=== PATIENT | male | born 1965 | race Caucasian/White ===

== ENCOUNTER 2016-12-31 18:53 | Emergency (ER) | payer MEDICARE, MEDICAID ==
[~2016-12-31] VITALS: Ht 172.7 cm; Wt 95.3 kg
[~2016-12-31 18:53] MED LIST: ABILIFY10 MG PO; ALBUTEROL0.09 MG/A2 IH; AMBIEN5 MG PO; ANDRODERM2.5 MG/24; ASPIRIN325 MG PO; ASPIRIN81 MG PO; AUGMENTIN 875875 MG PO; BENZTROPINE; BENZTROPINE1 MG PO; CLINDAMYCIN150 MG PO; CLONIDINE0.2 MG PO; CLOPIDOGREL75 MG PO; CYMBALTA; CYMBALTA PO; CYMBALTA60 M1 PO; CYMBALTA60 MG PO; DAYPRO600 M1 PO; FOLIC ACID1 MG PO; HYDR25T PO; HYDROCODONE BIT1 T11 PO; IMDUR60 MG PO; KEFLEX500 MG PO; LASIX40 MG PO; LISINOPRIL PO; LISINOPRIL2.5 MG PO; Lopressor25 MG PO; METFORMIN500 MG PO; METHOCARBAMOL750 MG PO; METOPROLOL50 MG PO; NORVASC10 MG PO; OXYCODONE; PEPCID20 MG PO; PERCOCET PO; PLAVIX75 MG PO; PRAVACHOL20 MG PO; PRINIVIL20 MG PO; PROTONIX40 MG PO; ROBAXIN750 MG PO; SEROQUEL100 MG PO; SEROQUEL50 MG PO; SKELAXIN800 MG PO; SYMBICORT1 AE1 INH; SYNTHROID0.125 MG PO; TRAMADOL HCL50 MG PO; TRIMOX500 MG PO; VALIUM; VALIUM10 MG; VICODIN 5/500 505 MG PO; VICODIN 500 MG-1 TAB PO; VITAMIN B1225 MCG; VITAMIN D50000 I1 PO
[2016-12-31 19:08] VITALS: BP 160/91
[2016-12-31 19:30] LABS: BASO % 0.4 % (0.0-1.0); EOS # 0.2 10*3/uL (0.0-0.4); EOS % 2.1 % (1.0-4.0); HEMATOCRIT 44.1 % (42.0-52.0); HEMOGLOBIN 15.4 g/dl (14.0-18.0); LYMPH % 28.6 % (27.0-41.0); MEAN CELL VOLUME 92.5 fl (80.0-94.0); MEAN CORPUSCULAR HGB 32.3 pg (27.0-31.0); MEAN CORPUSCULAR HGB CONC 34.9 g/dl (33.0-37.0); MEAN PLATELET VOLUME 10.6 fl (9.6-12.3); NEUT # 6.1 10*3/uL (2.3-7.9); NEUT % 58.6 % (47.0-73.0); PLATELET COUNT AUTOMATED 292 10*3/uL (130-400); RED BLOOD COUNT 4.77 10*6/uL (4.50-5.90); RED CELL DISTRI WIDTH 13.2 % (0-14.5); WHITE BLOOD COUNT 10.5 10*3/uL (4.8-10.8)
[2016-12-31 19:41] LABS: BILIRUBIN NEGATIVE (NEGATIVE); BLOOD NEGATIVE (NEGATIVE); CLARITY CLEAR (CLEAR); COLOR YELLOW (YELLOW); GLUCOSE NEGATIVE (NEGATIVE); KETONE NEGATIVE (NEGATIVE); LEUKO ESTERASE NEGATIVE (NEGATIVE); NITRITE NEGATIVE (NEGATIVE); PH 5.5 (5.0-9.0); PROTEIN NEGATIVE (NEGATIVE); UROBILINOGEN 0.2 E.U./dl (0.2-1.0)
[2016-12-31 19:46] LABS: ALBUMIN 3.5 gm/dl (3.1-4.5); ALKALINE PHOSPHATASE 92 U/L (45-117); BILIRUBIN, TOTAL 0.2 mg/dl (0.2-1.0); BUN 14 mg/dl (7-24); CARBON DIOXIDE 31 mmol/L (21-32); CHLORIDE 104 mmol/L (98-107); EST GLOM FILT AFRICAN AMERICAN > 60 ml/min; GLUCOSE 124 mg/dL (65-99); POTASSIUM 3.9 mmol/L (3.5-5.1); SGOT/AST 11 IU/L (3-35); SGPT/ALT 23 U/L (12-78); SODIUM 144 mmol/L (136-145); TOTAL PROTEIN 6.9 gm/dL (6.4-8.2)
[2016-12-31 19:54] LABS: RBC 0-2 rbc/hpf (0-2); URINE REFLEX COMMENT NO (NO); WBC 0-2 wbc/hpf (0-5)
== END 2016-12-31 22:17 | disposition home or self-care (01) ==
LOC: ED 18:53
PROVIDERS: Registered Nurse
DX: R10.31 Right lower quadrant pain (principal); F17.200 Nicotine dependence, unspecified, uncomplicated; Z95.5 Presence of coronary angioplasty implant and graft; Z90.49 Acquired absence of other specified parts of digestive tract; Z79.82 Long term (current) use of aspirin; Z79.899 Other long term (current) drug therapy

== ENCOUNTER → 2017-05-02 | Outpatient (CLI) | payer MEDICARE, MEDICAID | END | disposition home or self-care (01) | LOC: RAD 15:44 | DX: M16.0 Bilateral primary osteoarthritis of hip (principal); G89.29 Other chronic pain ==

== ENCOUNTER → 2017-05-19 | Outpatient (CLI) | payer MEDICARE, MEDICAID ==
[2017-05-19 09:00] LABS: BASO # 0.1 10*3/uL (0.0-0.1); BASO % 0.6 % (0.0-1.0); EOS # 0.5 10*3/uL (0.0-0.4); EOS % 4.3 % (1.0-4.0); HEMATOCRIT 43.2 % (42.0-52.0); HEMOGLOBIN 14.7 g/dl (14.0-18.0); LYMPH % 18.6 % (27.0-41.0); MEAN CELL VOLUME 94.9 fl (80.0-94.0); MEAN CORPUSCULAR HGB 32.3 pg (27.0-31.0); MEAN PLATELET VOLUME 10.3 fl (9.6-12.3); MONO # 0.9 10*3/uL (0.1-1.0); MONO % 8.1 % (3.0-9.0); NEUT # 7.2 10*3/uL (2.3-7.9); PLATELET COUNT AUTOMATED 235 10*3/uL (130-400); RED BLOOD COUNT 4.55 10*6/uL (4.50-5.90); RED CELL DISTRI WIDTH 13.6 % (0-14.5); WHITE BLOOD COUNT 10.5 10*3/uL (4.8-10.8)
[2017-05-19 09:26] LABS: ALBUMIN 3.1 gm/dl (3.1-4.5); BUN 14 mg/dl (7-24); CARBON DIOXIDE 31 mmol/L (21-32); CHLORIDE 106 mmol/L (98-107); CHOLESTEROL 116 mg/dL (<200); EST GLOM FILT AFRICAN AMERICAN > 60 ml/min; GLUCOSE 125 mg/dL (65-99); HDL CHOLESTEROL 46 mg/dl (40-60); LDL CHOLESTEROL 51 mg/dL (9-159); POTASSIUM 4.3 mmol/L (3.5-5.1); SGOT/AST 12 IU/L (3-35); SGPT/ALT 28 U/L (12-78); SODIUM 142 mmol/L (136-145); TOTAL PROTEIN 6.5 gm/dL (6.4-8.2); TRIGLYCERIDES 97 mg/dl (<150); VLDL CHOLESTEROL 19 mg/dL (6-40)
[2017-05-19 09:34] LABS: ALKALINE PHOSPHATASE 87 U/L (45-117); BILIRUBIN, TOTAL 0.3 mg/dl (0.2-1.0)
[2017-05-19 13:04] LABS: FOLIC ACID 18.81 ng/mL (>5.38); VITAMIN D, 25-HYDROXY 56.7 ng/mL (30-100)
== END | disposition home or self-care (01) ==
LOC: RAD 08:00 → LAB 08:05
PROVIDERS: Internal Medicine
DX: Z12.5 Encounter for screening for malignant neoplasm of prostate (principal); I25.84 Coronary atherosclerosis due to calcified coronary lesion; E03.9 Hypothyroidism, unspecified; E53.8 Deficiency of other specified B group vitamins; E55.9 Vitamin D deficiency, unspecified; R35.1 Nocturia; E11.9 Type 2 diabetes mellitus without complications; R63.4 Abnormal weight loss; K22.2 Esophageal obstruction; R11.2 Nausea with vomiting, unspecified

== ENCOUNTER 2017-08-27 16:13 | Inpatient (IN) | payer MEDICARE, MEDICAID ==
[~2017-08-27] VITALS: Ht 172.7 cm; Wt 80.5 kg
--- NOTE | ~2017-08-27 | CON ---
[place], [place] REPORT OF CONSULTATION NAME: JUAN BELL [facility] #: [id number] UNIT #: [id number] ROOM: 506 DOCTOR: ALEXANDRIA FREDERICK MD BIRTHDATE: [birth year] DOS: 08/29/2017 REASON FOR CONSULTATION: Chest discomfort. HISTORY OF PRESENT ILLNESS: A 52-year-old gentleman with known history of coronary artery previous stent placement. The patient had a heart catheterization in the past that showed the stents were patent. The patient admitted with left-sided precordial chest discomfort. The patient also has shortness of breath. The patient's pain was about 8/10. No acute EKG changes suggestion of myocardial injury or infarction. The patient says that his symptoms developed a month ago, but got worse for the last 2 days, also has significant shortness of breath. Main problem is shortness of breath more than pain, stated that he has not felt well for about a month with worsening of symptoms for the last 2-3 days. PAST MEDICAL HISTORY: Significant for coronary artery disease, previous stent placement, hypertension, hyperlipidemia, myocardial infarction, suicidal ideation, diabetes mellitus, depression, cannabis abuse, combative behavior and adrenal adenoma. PAST SURGICAL HISTORY: Fracture of the leg, history of renal stent. ALLERGIES: None. HOME MEDICATIONS: Aspirin, carvedilol, clonidine, clopidogrel, hydrochlorothiazide, isosorbide, metformin, pravastatin, and metoprolol. REVIEW OF SYSTEMS: CONSTITUTIONAL: No fever, no chills. HEENT: No visual disturbances or hearing problems. CARDIOVASCULAR: As per HPI. RESPIRATORY: Reports of shortness of breath and cough. GASTROINTESTINAL: No nausea, no vomiting. GENITOURINARY: No dysuria. NEUROLOGIC: No syncope. PHYSICAL EXAMINATION: VITAL SIGNS: Blood pressure is 170/90, repeat is 130/70. HEENT: Unremarkable. NECK: Supple, no JVD, no thyromegaly, no lymphadenopathy. LUNGS: Diminished air entry. No rhonchi, no rales. ABDOMEN: Soft. EXTREMITIES: Intact pulses. NEUROLOGIC: Neurologically stable. LABORATORY DATA: Sodium 138, potassium 3.6, creatinine is normal. Cardiac enzymes have been negative. Electrolytes are normal. LDL is normal. Hemoglobin 15, hematocrit 45.4. EKG sinus with nonspecific ST-T changes. IMPRESSION: The patient with severe shortness of breath and chest heaviness, [place], [place] REPORT OF CONSULTATION NAME: JUAN BELL UNIT #: [id number] ROOM: 506 DOCTOR: ALEXANDRIA FREDERICK MD BIRTHDATE: [birth year] marijuana abuse, diabetes mellitus, hypertension, coronary artery disease, hyperlipidemia. RECOMMENDATIONS: Continue the present medication, schedule a stress test in the morning. Monitor the blood pressure and heart rate, and I will follow up and Dr. Sainz saw the patient for me yesterday. ALEXANDRIA FREDERICK MD CM:CONSTR:REPORT OF CONSULTATION 7 08/29/17802 interface
--- NOTE | ~2017-08-27 | CON ---
[place], [place] REPORT OF CONSULTATION [facility] [id number] UNIT #: [id number] ROOM: 506 DOCTOR: OLIVA RICHMOND MD BIRTHDATE: [birth year] DOS: 08/28/2017 HISTORY OF PRESENT ILLNESS: This is a 52-year-old -[place] man with COPD who continues to smoke about half to one pack of cigarettes per day, coronary artery disease. He has had many stents placed over the years. Also, has a renal artery stent. He also has had myocardial infarction in the past, hypercholesterolemia, diabetes mellitus, depression, combative behavior, cannabis use, alcohol and drug intoxication and also adrenal adenoma. He lives at home with his girlfriend. He apparently had been feeling cold for a long time and felt weak, started coughing. He has thick phlegm that would not come up and last night he was alone at home and was having much difficulty breathing and decided to come to the emergency department. He also complains of the right mid anterior chest pain located on the right side of the sternum at about 4th and 5th intercostal area. It has been there for a year or so. It comes and goes and very localized, however. It does not get worse when he breathes. It does not get worse when he ambulates. No orthopnea or swelling of the lower extremities. HOME MEDICATIONS: Include amlodipine, aspirin, benztropine, Symbicort, clonidine, carvedilol, clopidogrel, famotidine, folic acid, furosemide, hydrochlorothiazide, isosorbide mononitrate 60 daily, lisinopril 30 daily, metformin 500 b.i.d., metoprolol 50 mg b.i.d. and ____. PHYSICAL EXAMINATION: GENERAL: The patient who is alert, oriented. He is wearing oxygen. He is not tachypneic. Complexion is fine. There is no thyromegaly, finger clubbing. VITAL SIGNS: His pulse is regular at 76 beats per minute, blood pressure 157/84. NECK: JVP is normal, no bruit in the neck. HEART: There is no cardiomegaly, no murmurs are present. EXTREMITIES: Excellent pedal pulses and no edema in lower extremities. RESPIRATORY: Bilateral hyperresonance is present and breath sounds are severely diminished with inspiratory and expiratory adventitious sounds. DIAGNOSTIC STUDIES: An ECG showed normal sinus rhythm and poor R wave progression which maybe from an old infarction or clockwise rotation of the heart ____ with COPD. Hemoglobin 15.9 g/dL. Normal WBC, normal renal function, potassium 4.0. Troponin is less than 0.015. Chest x-ray was done, it demonstrated no acute process. IMPRESSION: 1. This patient has severe chronic obstructive pulmonary disease with some exacerbation, probably from a chest infection, acute exacerbation of breathing may have been due to mucus plug. [place], [place] REPORT OF CONSULTATION NAME: JUAN BELL UNIT #: [id number] ROOM: 506 DOCTOR: BASILIO HAMILTON,OLIVA BIRTHDATE: [birth year] 2. Coronary artery disease, is not causing any problems, very localized right-sided chest pain, is likely to be from chest wall such as ____ and may be muscular. 3. Nicotine addiction. RECOMMENDATIONS: The patient needs aggressive COPD management. I discussed with him the need for quitting smoking. I thank you on behalf of Dr. Frederick for this consult. OLIVA RICHMOND MD CM:CONSTR:REPORT OF CONSULTATION 1751 08/29/17 0522 interface ALEXANDRIA FREDERICK MD
--- NOTE | ~2017-08-27 | ST ---
[place], [place] EXERCISE STRESS TEST REPORT [id number] UNIT #: [id number] ROOM: 506 DOCTOR: ALEXANDRIA FREDERICK MD BIRTHDATE: [birth year] DOS: 08/29/2017 Lexiscan portion of the Lexiscan Cardiolite Baseline cardiogram sinus rhythm with nonspecific ST-T changes, 0.4 mg Lexiscan, duration of 10 seconds. With Lexiscan, no new EKG changes. The patient did have shortness of breath. No chest discomfort. Blood pressure and heart rate response was normal. FINAL IMPRESSION: No EKG changes with Lexiscan. No chest pain with Lexiscan. No dysrhythmia with Lexiscan. Blood pressure and heart rate response was normal. Nuclear images will be reported separately. ALEXANDRIA FREDERICK MD CM:STRESS:EXERCISE STRESS TEST REPORT [id number] ALEXANDRIA FREDERICK MD
[2017-08-27 16:19] VITALS: BP 168/90
[2017-08-27 17:00] LABS: BASO # 0.1 10*3/uL (0.0-0.1); BASO % 0.3 % (0.0-1.0); EOS % 0.3 % (1.0-4.0); HEMATOCRIT 51.1 % (42.0-52.0); HEMOGLOBIN 17.4 g/dl (14.0-18.0); LYMPH # 0.6 10*3/uL (1.3-4.4); MEAN CELL VOLUME 94.3 fl (80.0-94.0); MEAN CORPUSCULAR HGB 32.1 pg (27.0-31.0); MEAN CORPUSCULAR HGB CONC 34.1 g/dl (33.0-37.0); MEAN PLATELET VOLUME 10.6 fl (9.6-12.3); MONO # 1.4 10*3/uL (0.1-1.0); MONO % 8.8 % (3.0-9.0); NEUT # 13.8 10*3/uL (2.3-7.9); PLATELET COUNT AUTOMATED 280 10*3/uL (130-400); RED BLOOD COUNT 5.42 10*6/uL (4.50-5.90)
[2017-08-27 17:09] LABS: ACT PARTIAL THROMBO TIME 25.6 SECONDS (20.8-31.5)
[2017-08-27 17:18] LABS: ALBUMIN 4.1 gm/dl (3.1-4.5); ALKALINE PHOSPHATASE 150 U/L (45-117); BUN 17 mg/dl (7-24); CHLORIDE 100 mmol/L (98-107); CREATININE 0.97 mg/dL (0.70-1.30); LIPASE 108 U/L (73-393); SGOT/AST 41 IU/L (3-35); SGPT/ALT 64 U/L (12-78); SODIUM 137 mmol/L (136-145); TOTAL PROTEIN 8.3 gm/dL (6.4-8.2)
[2017-08-27 17:19] LABS: TROPONIN I < 0.015 ng/ml (<0.045)
[2017-08-27 18:00] VITALS: BP 150/78; BP 150/80
--- NOTE | 2017-08-27 18:50 | NUR ---
A 52, admitted to , under the services of MERRILL Bellamy DO with a diagnosis of COPD,PNEUMONITIS. Chief complaint is SHORTNESS OF BREATH. Patient arrived via bed from ER. Monitor applied. Initial assessment completed. Vital signs taken and recorded. MERRILL BELLAMY DO notified of admission to the unit. Orders received. See assessment for past medical history, medications and allergies. Patient and/or family oriented to unit. [facility]. Clothing/patient valuable form completed. CASA CLEMENT
[2017-08-27] MEDS ORDERED: PERCOCET 5-3251 EACH PO (18:59)
[2017-08-27 19:00] VITALS: BP 140/89
[2017-08-27] MEDS ORDERED: COREG25 MG PO (19:02)
--- NOTE | 2017-08-27 19:02 | NUR ---
PATIENT VERIFIED ALL MEDS EXCEPT DOSE FOR COREG. PHARMACY WAS CLOSED.
--- NOTE | 2017-08-27 19:12 | NUR ---
PT VERIFIED HIS [employer] INSPECTOR DR FREDERICK.
--- NOTE | 2017-08-27 19:41 | NUR ---
PT ALREADY IMMUNIZED THIS SEASON WITH BOTH FLU AND PNEUMOVAX.
--- NOTE | 2017-08-27 19:52 | NUR ---
Time: 1904 A 52 year old MALE admitted to 5E under services of MERRILL BELLAMY DO. Pt. arrived via bed from ER. Chief complaint: COPD EXACERBATION. MINDY LUDWIG J
[2017-08-27 19:55] VITALS: BP 140/89
[2017-08-27 20:00] VITALS: BP 165/89
--- NOTE | 2017-08-27 20:30 | NUR ---
NOTIFIED THAT HOME MEDICATION HAVE BEEN VERIFIED. NO ORDERS AT THIS TIME.
[2017-08-28] VITALS: BP 164/100
--- NOTE | 2017-08-28 03:41 | NUR ---
Dr. Donaldson called explained no orders, explained breathing treatments requested and pain medication by patient, and B/P 164/100. Requested and medicated with [facility] at 0127 for complaints of wrist pain, rated 6/10. Requested and medicated with Restoril at 0132 to aid sleep. Restoril ineffective to aid sleep. Remains awake at this time. Will continue to monitor.
[2017-08-28 04:00] VITALS: BP 171/102
[2017-08-28 06:26] LABS: BASO % 0.1 % (0.0-1.0); HEMATOCRIT 45.4 % (42.0-52.0); HEMOGLOBIN 15.9 g/dl (14.0-18.0); LYMPH # 0.6 10*3/uL (1.3-4.4); LYMPH % 7.4 % (27.0-41.0); MEAN CELL VOLUME 92.1 fl (80.0-94.0); MEAN CORPUSCULAR HGB 32.3 pg (27.0-31.0); MEAN PLATELET VOLUME 10.8 fl (9.6-12.3); MONO # 0.4 10*3/uL (0.1-1.0); NEUT # 6.4 10*3/uL (2.3-7.9); PLATELET COUNT AUTOMATED 260 10*3/uL (130-400); RED BLOOD COUNT 4.93 10*6/uL (4.50-5.90); RED CELL DISTRI WIDTH 13.5 % (0-14.5); WHITE BLOOD COUNT 7.4 10*3/uL (4.8-10.8)
[2017-08-28 06:55] LABS: BUN 19 mg/dl (7-24); CHLORIDE 102 mmol/L (98-107); POTASSIUM 3.6 mmol/L (3.5-5.1); SODIUM 138 mmol/L (136-145)
[2017-08-28 06:57] LABS: ACT PARTIAL THROMBO TIME 26.8 SECONDS (20.8-31.5); INTERNATIONAL NORM RATIO 1.1 (2.0-3.5)
[2017-08-28 07:07] LABS: CHOLESTEROL 151 mg/dL (<200); CREATININE 0.83 mg/dL (0.70-1.30); HDL CHOLESTEROL 53 mg/dl (40-60); LDL CHOLESTEROL 78 mg/dL (9-159); THYROID STIM HORMONE (HS) 0.083 uIU/ml (0.358-4.75); TRIGLYCERIDES 98 mg/dl (<150); VLDL CHOLESTEROL 20 mg/dL (6-40)
--- NOTE | 2017-08-28 07:36 | NUR ---
nORCO RECIEVED EARLIER EFFECTIVE TO ALLOW PAIN TO BE TOLERABLE. REQUESTED AND MEDICATED WITH nORCO AT 0730 FOR COMPLAINTS OF BERMUDEZ, RATED A 6/10, WITH A RUNNY NOSE AND CONGESTION ORDER. WILL CONTINUE TO MONITOR.
--- NOTE | 2017-08-28 08:00 | NUR ---
PATIENT IS RESTING COMFORTABLY IN BED. PATIENT HAS HAD A FEW EPISODES OF DYSPNEA AND HAS EXPIRATORY WHEEZES UPON AUSCULTATION. PATIENT WAS HYPERTENSIVE AND STATES THAT HE USUALLY HAS HIGH BP AT HOME. PATIENT DENIES ANY PAIN OR DISCOMFORT AT THIS TIME. PT A&OX3 AND AMBULATES WITHOUT ASSIST. CALL LIGHT WITHING REACH. SEE ASSESSMENT.
--- NOTE | 2017-08-28 08:30 | NUR ---
Carpenter Inspector in to talk to patient. Patient states lives at HOME with HIS GIRLFRIEND. There are 13 steps in the home. Physician: DR LOCK Pharmacy: [facility] health services: NONE Patient's level of ADLs: INDEPENDENT Patient has working utilities: YES DME: NONE Follow-up physician's appointment after d/c: WILL BE MADE PRIOR TO DC Does patient want to access PORTAL?: Discharge plan HOME. JOSEPH YADAV
--- NOTE | 2017-08-28 08:39 | NUR ---
NOTIFIED GIULIANA KIRK REGARDING HYPERTENSION. GIULIANA WAS IN TO SEE PATIENT ON THE FLOOR.
[2017-08-28 08:40] VITALS: BP 170/98
[2017-08-28 08:56] LABS: VITAMIN D, 25-HYDROXY 51.2 ng/mL (30-100)
[2017-08-28 12:00] VITALS: BP 133/75
--- NOTE | 2017-08-28 13:21 | NUR ---
patient given norco per pt request for pain rated a 6/10 in the shoulders and hips described as a dull ache. will continue to monitor and reassess.
--- NOTE | 2017-08-28 13:34 | NUR ---
PATIENT IS RESTING IN THE BEDSIDE CHAIR. PATIENT HAS GRADUAL SORENESS IN SHOULDERS AND HIPS. PATIENT IS ABLE TO AMBULATE WITHOUT ASSIST. PT DENIES SOB RECEIVING 2LPM VIA NC. PATIENT HAS A HX OF HTN. PATIENT DENIES ANY N/V/D. HOB ELEVATED. SAMMY CYR APPLIED. CALL LIGHT WITHIN REACH.
[2017-08-28 16:00] VITALS: BP 157/84
[2017-08-28 20:00] VITALS: BP 170/90
--- NOTE | 2017-08-28 20:00 | NUR ---
LAB RESULTS AND ORDERS REVIEWED. PT RESTING COMFORTABLY IN BED. NO S AND S OF ACUTE DISTRESS NOTED AT THIS TIME.
[2017-08-29] VITALS: BP 155/86
--- NOTE | 2017-08-29 04:00 | NUR ---
PT IN BED RESTING COMFORTABLY. NO S AND S OF ACUTE DISTRESS NOTED AT THIS TIME. CALL LIGHT IN REACH.
--- NOTE | 2017-08-29 06:49 | NUR ---
PT OFF FLOOR FOR STRESS TEST
--- NOTE | 2017-08-29 07:30 | NUR ---
INFORMED CONSENT OBTAINED FOR LEXISCAN NUCLEAR STRESS TEST WITH DR. FREDERICK. RESTING EKG NSR WITH A RESTING HR OF 67 WITH BP OF 162/100. LUNGS CLEAR WITH SPO2 OF 96% ON ROOM AIR. PT COMPLETED A 1:00 LEXISCAN PROTOCOL RECEIVING LEXISCAN 0.4 MG IV OVER 10 SECONDS. HAD NO CHEST PAIN OR ANY EKG CHANGES. DID C/O FEELING OF SHORTNESS OF BREATH THAT RESOLVED IN RECOVERY. HAD A PEAK HR OF 100 WITH BP OF 166/84. LAST RECOVERY HR OF 87 WITH BP OF 172/100. AWAITING SCANNING IN STABLE CONDITION.
[2017-08-29 12:00] VITALS: BP 139/78
[2017-08-29 16:00] VITALS: BP 131/77
[2017-08-29 20:00] VITALS: BP 147/84
--- NOTE | 2017-08-29 20:35 | NUR ---
PATIENT SITTING UP IN BED CONVERSING WITH ROOMMATE. HE HAS NO VOICED COMPLAINTS AT THIS TIME. STATES HE DOES GET SOB WITH EXERTION RACHNA WALKING UP STAIRS. HE IS PLEASANT/COOPERATIVE WITH CARE. CALL LIGHT IS IN REACH. WILL MONITOR.
--- NOTE | 2017-08-29 21:49 | NUR ---
PATIENT MEDICATED WITH PRN NORCO ORDERD FOR C/O BACK PAIN RATED A 6. AND PRN RESTORIL ORDERED FOR C/O INSOMNIA.
[2017-08-30] VITALS: BP 154/88
--- NOTE | 2017-08-30 04:10 | NUR ---
DR WRIGHT NOTIFIED OF PATIENTS [address] [facility] OF [facility]. SHE SAID TO CALL HIS DIRECTOR OF STUDENT FINANCIAL AID TO LET HIM KNOW. DR BOWSER NOTIFIED. NEW ORDERS RECEIVED.
--- NOTE | 2017-08-30 04:37 | NUR ---
MEDICATED WITH PRN NORCO ORDERED FOR C/O BACK PAIN RATED A 7.
[2017-08-30 07:46] LABS: BUN 23 mg/dl (7-24); CHLORIDE 101 mmol/L (98-107); CREATININE 0.86 mg/dL (0.70-1.30); POTASSIUM 3.2 mmol/L (3.5-5.1); SODIUM 139 mmol/L (136-145)
[2017-08-30 08:00] VITALS: BP 171/95
[2017-08-30] MEDS ORDERED: DOXYCYCLINE100 M3 PO (09:15)
[2017-08-30] MEDS ORDERED: METOPROLOL TART50 M1 PO (09:15)
[2017-08-30] MEDS ORDERED: PREDNISONE10 MG PO (09:15)
--- NOTE | 2017-08-30 09:18 | NUR ---
PRN PAIN MED GIVEN FOR 6/10 BACK PAIN.
--- NOTE | 2017-08-30 10:18 | NUR ---
PRN PAIN MED EFFECTIVE, PT REPORTS BACK PAIN 4/10.
--- NOTE | 2017-08-30 11:20 | NUR ---
Patient requested referral to [facility] upon discharge. Received order and faxed clincals to [place] for referral.
--- NOTE | 2017-08-30 12:21 | NUR ---
Discharge instructions reviewed with patient/family. Patient receptive and verbalizes understanding. Follow-up care arranged. Written instructions given to patient/family. [place] [place]
== END 2017-08-30 12:21 | disposition home or self-care (01) | DRG 205 ==
LOC: ED 16:13 → EDHOLD 17:42 → 5E 17:42
PROVIDERS: Emergency Medicine; Internal Medicine; Internal Medicine Cardiovascular Disease; ADMIT Internal Medicine
PROC: 4A02XM4 Measurement of Cardiac Total Activity, External Approach (ICD-10-PCS; principal; 2017-08-29)
PROC: 3E073KZ Introduction of Other Diagnostic Substance into Coronary Artery, Percutaneous Approach (ICD-10-PCS; principal; 2017-08-29)
DX: M94.0 Chondrocostal junction syndrome [Tietze] (principal); J18.9 Pneumonia, unspecified organism; I47.2 Ventricular tachycardia; J44.0 Chronic obstructive pulmonary disease with (acute) lower respiratory infection; J44.1 Chronic obstructive pulmonary disease with (acute) exacerbation; F12.10 Cannabis abuse, uncomplicated; E11.65 Type 2 diabetes mellitus with hyperglycemia; E78.00 Pure hypercholesterolemia, unspecified; K21.9 Gastro-esophageal reflux disease without esophagitis; R07.89 Other chest pain; I25.119 Atherosclerotic heart disease of native coronary artery with unspecified angina pectoris; I10 Essential (primary) hypertension; F17.210 Nicotine dependence, cigarettes, uncomplicated; I25.2 Old myocardial infarction; Z98.61 Coronary angioplasty status; Z90.49 Acquired absence of other specified parts of digestive tract; Z82.49 Family history of ischemic heart disease and other diseases of the circulatory system; Z83.3 Family history of diabetes mellitus; Z80.9 Family history of malignant neoplasm, unspecified; Z79.82 Long term (current) use of aspirin; Z79.84 Long term (current) use of oral hypoglycemic drugs; Z79.899 Other long term (current) drug therapy; Z71.6 Tobacco abuse counseling

== ENCOUNTER → 2018-01-25 | Day surgery (SDC) | payer MEDICARE, MEDICAID ==
[~2018-01-25] VITALS: Ht 172.7 cm; Wt 89.4 kg
[~2018-01-25] MED LIST changes: +COREG25 MG PO; +DOXYCYCLINE100 M3 PO; +METOPROLOL TART50 M1 PO; +NORCO 5-325 TA1 EACH PO; +PERCOCET 5-3251 EACH PO; +PREDNISONE10 MG PO
--- NOTE | ~2018-01-25 | PROC NOTE ---
[place], [place] PROCEDURE NOTE NAME: JUAN BELL [facility] #: [id number] UNIT #: [id number] ROOM: DOCTOR: COSMO KULKARNI MD BIRTHDATE: [birth year] DOS: 01/25/2018 PREOPERATIVE DIAGNOSIS: Posterior neck, left anterior scalp soft tissue masses. POSTOPERATIVE DIAGNOSIS: Posterior neck, left anterior scalp soft tissue masses. PROCEDURE: Excision of posterior neck and left anterior scalp soft tissue mass. SURGEON: Cosmo Kulkarni MD ASSOCIATE QUALITY ENGINEER: SHABNAM. ANESTHESIA: Local (1% plain lidocaine). INDICATIONS: This is a 52-year-old gentleman with a history of 2 soft tissue masses, one on the posterior part of the neck and one on the left anterior scalp, who is here for the above-mentioned procedure. The procedure and its complications were explained to the patient in detail. Complications that were discussed included but were not limited to, bleeding, infection, hematoma/seroma/abscess formation and prolonged pain. He agreed to proceed. DESCRIPTION OF PROCEDURE: After identifying the patient, the patient was brought to the operating suite and laid in the right lateral position. It was decided to remove the posterior neck mass first. The parts were painted and draped in the usual sterile fashion and a time-out procedure was called. An elliptical incision was marked and local anesthesia was infiltrated. Incision was made with the help of a knife and deepened with the help of electrocautery. The mass was excised in its entirety and sent for histopathological diagnosis. Hemostasis was achieved with the help of electrocautery. Thereafter, the skin edges were approximated with the help of 3-0 nylon in mattress fashion. Dressing was placed. The patient was placed in the supine position and the mass was marked on the left anterior scalp. Local anesthesia was infiltrated. An incision was made and the mass was excised in its entirety after it was out from the surrounding fibromuscular tissue. It was sent for histopathological diagnosis. Hemostasis was achieved with the help of electrocautery and by stick ties. Thereafter, after hemostasis confirmed, the edges of the skin were approximated with the help of 3-0 nylon in an interrupted fashion. Additional hemostasis was provided by providing some pressure. After hemostasis was confirmed and there was no hematoma seen, the dressing was placed and the patient was brought back to the recovery room in stable fashion. There were no complications. Dr. Cosmo Kulkarni, the attending surgeon, was present throughout the operating case. [place], [place] PROCEDURE NOTE [id number] #: [id number] ROOM: DOCTOR: COSMO KULKARNI MD BIRTHDATE: [birth year] Cosmo Kulkarni MD CM:PROCNOTE:PROCEDURE NOTE 0940 1004 COSMO KULKARNI MD
[2018-01-25 08:05] VITALS: BP 163/90
[2018-01-25 08:35] VITALS: BP 133/99
[2018-01-25 08:50] VITALS: BP 143/94
[2018-01-25 09:10] VITALS: BP 144/93
[2018-01-25 09:20] VITALS: BP 141/89
== END | disposition home or self-care (01) ==
LOC: SDC 01-24 09:30
DX: D17.0 Benign lipomatous neoplasm of skin and subcutaneous tissue of head, face and neck (principal); L72.0 Epidermal cyst; I25.10 Atherosclerotic heart disease of native coronary artery without angina pectoris; I10 Essential (primary) hypertension; F32.9 Major depressive disorder, single episode, unspecified; F41.9 Anxiety disorder, unspecified; I25.2 Old myocardial infarction; Z95.818 Presence of other cardiac implants and grafts; F17.210 Nicotine dependence, cigarettes, uncomplicated; E78.00 Pure hypercholesterolemia, unspecified; Z90.49 Acquired absence of other specified parts of digestive tract; Z83.3 Family history of diabetes mellitus; Z80.9 Family history of malignant neoplasm, unspecified; Z82.49 Family history of ischemic heart disease and other diseases of the circulatory system; Z79.84 Long term (current) use of oral hypoglycemic drugs; Z79.899 Other long term (current) drug therapy; M19.90 Unspecified osteoarthritis, unspecified site; E11.9 Type 2 diabetes mellitus without complications; J44.9 Chronic obstructive pulmonary disease, unspecified; E03.9 Hypothyroidism, unspecified; I50.9 Heart failure, unspecified; I48.91 Unspecified atrial fibrillation; K21.9 Gastro-esophageal reflux disease without esophagitis

== ENCOUNTER → 2018-02-09 | Outpatient (CLI) | payer MEDICARE, MEDICAID ==
[2018-02-09 11:08] LABS: BILIRUBIN NEGATIVE (NEGATIVE); BLOOD NEGATIVE (NEGATIVE); CLARITY CLEAR (CLEAR); COLOR YELLOW (YELLOW); GLUCOSE NEGATIVE (NEGATIVE); KETONE TRACE (NEGATIVE); LEUKO ESTERASE NEGATIVE (NEGATIVE); NITRITE NEGATIVE (NEGATIVE); UROBILINOGEN 0.2 E.U./dl (0.2-1.0)
[2018-02-09 11:15] LABS: BASO # 0.1 10*3/uL (0.0-0.1); BASO % 0.5 % (0.0-1.0); EOS # 0.4 10*3/uL (0.0-0.4); EOS % 3.3 % (1.0-4.0); HEMATOCRIT 48.3 % (42.0-52.0); HEMOGLOBIN 16.1 g/dl (14.0-18.0); LYMPH # 2.9 10*3/uL (1.3-4.4); LYMPH % 22.4 % (27.0-41.0); MEAN CELL VOLUME 92.7 fl (80.0-94.0); MEAN CORPUSCULAR HGB 30.9 pg (27.0-31.0); MEAN CORPUSCULAR HGB CONC 33.3 g/dl (33.0-37.0); MEAN PLATELET VOLUME 10.7 fl (9.6-12.3); MONO # 1.2 10*3/uL (0.1-1.0); MONO % 9.5 % (3.0-9.0); NEUT # 8.2 10*3/uL (2.3-7.9); NEUT % 64.1 % (47.0-73.0); PLATELET COUNT AUTOMATED 274 10*3/uL (130-400); RED BLOOD COUNT 5.21 10*6/uL (4.50-5.90); RED CELL DISTRI WIDTH 14.1 % (0-14.5); WHITE BLOOD COUNT 12.8 10*3/uL (4.8-10.8)
[2018-02-09 11:27] LABS: EPITHELIAL CELLS 0-2; WBC 0-2 wbc/hpf (0-5)
[2018-02-09 11:29] LABS: BUN 14 mg/dl (7-24); CHLORIDE 103 mmol/L (98-107); CREATININE 0.96 mg/dL (0.70-1.30); SODIUM 137 mmol/L (136-145)
== END | disposition home or self-care (01) ==
LOC: LAB 08:43
PROVIDERS: Surgery
DX: Z01.818 Encounter for other preprocedural examination (principal); J43.9 Emphysema, unspecified; I48.0 Paroxysmal atrial fibrillation; R94.31 Abnormal electrocardiogram [ECG] [EKG]; I25.10 Atherosclerotic heart disease of native coronary artery without angina pectoris; I25.84 Coronary atherosclerosis due to calcified coronary lesion; E11.9 Type 2 diabetes mellitus without complications; E03.9 Hypothyroidism, unspecified; I10 Essential (primary) hypertension; R13.14 Dysphagia, pharyngoesophageal phase; K42.9 Umbilical hernia without obstruction or gangrene; F17.200 Nicotine dependence, unspecified, uncomplicated

== ENCOUNTER → 2018-02-15 | Day surgery (SDC) | payer MEDICARE, MEDICAID ==
[~2018-02-15] VITALS: Ht 172.7 cm; Wt 86.2 kg
[2018-02-15] VITALS (7 sets, daily range): BP systolic 106–138; BP diastolic 72–89
--- NOTE | ~2018-02-15 | O ---
[place], [place] OPERATIVE NOTE NAME: JUAN BELL [facility] #: [id number] UNIT #: [id number] ROOM: DOCTOR: COSMO KULKARNI MD BIRTHDATE: [birth year] DOS: 02/15/2018 PREOPERATIVE DIAGNOSIS: Symptomatic umbilical hernia. POSTOPERATIVE DIAGNOSIS: Symptomatic umbilical hernia. PROCEDURE: Umbilical hernia repair (primary). SURGEON: Cosmo Kulkarni MD DREDGE MASTER: SHABNAM. ANESTHESIA: MAC with local. INDICATIONS: This is a 52-year-old gentleman with a prior history of laparoscopic cholecystectomy, who is here with an umbilical hernia. The procedure and its complications were explained to the patient in detail preoperatively. Complications that were discussed included but were not limited to bleeding, infection, hematoma/seroma/abscess formation, prolonged postoperative pain, damage to underlying vital structures, inadvertent injury to underlying vital structures and recurrence. He agreed to proceed. DESCRIPTION OF PROCEDURE: After identifying the patient, the patient was brought to the operating suite and laid in the supine position. After IV sedation was administered by the anesthesia team, the parts were painted and draped in the usual sterile fashion and a timeout procedure was called. A curvilinear incision was marked with the help of a marking pen in the inferior part of the umbilicus. After 1% plain lidocaine was injected for local anesthesia, the incision was made with the help of electrocautery and deepened in layers. The hernial sac was from the surrounding skin and subcutaneous tissue in all directions. Thereafter, the hernial sac itself was opened and was found to contain omentum. Adhesions between the omentum and the sac were taken down with the help of electrocautery and partial omentectomy was done in order to better identify the defect and perform the repair. The sac was then excised with the help of electrocautery and sent for histopathological diagnosis as well. After the edges of the fascial defect were cleared of all the connective tissue. The size of the defect was measured and it was found to be less than 1 cm. Therefore, a primary repair was elected to be performed. This was done with the help of 0 PDS in an interrupted fashion. Thereafter, the subcutaneous tissue was irrigated and approximated in 2 layers with the help of 3-0 Vicryl. The edges of the skin were approximated with help of 4-0 Vicryl in a subcuticular running fashion. A dressing was placed. The patient tolerated the procedure well. There were no complications. Dr. Cosmo Kulkarni, the attending surgeon, was present throughout the operating case. [place], [place] OPERATIVE NOTE NAME: ARABELLAJUAN Ibis UNIT #: [id number] ROOM: DOCTOR: COSMO KULKARNI MD BIRTHDATE: [birth year] Cosmo Kulkarni MD CM:OPRECORD:OPERATIVE NOTE 0 9 COSMO KULKARNI MD 02/15/18939 interface
== END | disposition home or self-care (01) ==
LOC: SDC 02-09 08:45
DX: K42.9 Umbilical hernia without obstruction or gangrene (principal); I25.2 Old myocardial infarction; I25.10 Atherosclerotic heart disease of native coronary artery without angina pectoris; J44.9 Chronic obstructive pulmonary disease, unspecified; K21.9 Gastro-esophageal reflux disease without esophagitis; E11.9 Type 2 diabetes mellitus without complications; M19.90 Unspecified osteoarthritis, unspecified site; E03.9 Hypothyroidism, unspecified; F32.9 Major depressive disorder, single episode, unspecified; I50.9 Heart failure, unspecified; I48.91 Unspecified atrial fibrillation; I11.0 Hypertensive heart disease with heart failure; Z90.49 Acquired absence of other specified parts of digestive tract; Z83.3 Family history of diabetes mellitus; Z82.49 Family history of ischemic heart disease and other diseases of the circulatory system; F17.210 Nicotine dependence, cigarettes, uncomplicated; Z98.890 Other specified postprocedural states; Z79.899 Other long term (current) drug therapy

== ENCOUNTER 2018-02-23 18:43 | Emergency (ER) | payer MEDICARE, MEDICAID ==
[~2018-02-23] VITALS: Wt 89.4 kg
[2018-02-23 18:47] VITALS: BP 163/105
[2018-02-23 19:55] LABS: HEMOGLOBIN 16.3 g/dl (14.0-18.0); MEAN CELL VOLUME 90.6 fl (80.0-94.0); MEAN CORPUSCULAR HGB 31.4 pg (27.0-31.0); MEAN CORPUSCULAR HGB CONC 34.7 g/dl (33.0-37.0); MEAN PLATELET VOLUME 10.3 fl (9.6-12.3); PLATELET COUNT AUTOMATED 223 10*3/uL (130-400); RED BLOOD COUNT 5.19 10*6/uL (4.50-5.90); RED CELL DISTRI WIDTH 13.9 % (0-14.5); WHITE BLOOD COUNT 12.4 10*3/uL (4.8-10.8)
[2018-02-23 20:05] LABS: ACT PARTIAL THROMBO TIME 24.8 SECONDS (20.8-31.5)
[2018-02-23 20:11] LABS: ALBUMIN 3.7 gm/dl (3.1-4.5); ALKALINE PHOSPHATASE 88 U/L (45-117); BUN 21 mg/dl (7-24); CHLORIDE 107 mmol/L (98-107); CREATININE 1.14 mg/dL (0.70-1.30); POTASSIUM 4.2 mmol/L (3.5-5.1); SGOT/AST 19 IU/L (3-35); SGPT/ALT 27 U/L (12-78); SODIUM 141 mmol/L (136-145); TOTAL PROTEIN 6.7 gm/dL (6.4-8.2)
[2018-02-23 20:15] LABS: TROPONIN I < 0.015 ng/ml (<0.045)
[2018-02-23 20:20] LABS: PLATELET SUFFICIENCY NORMAL (NORMAL); TOTAL CELLS COUNTED 100 #CELLS
== END 2018-02-23 22:35 | disposition left against medical advice (07) ==
LOC: ED 18:43
PROVIDERS: Nurse Practitioner Family
DX: K91.841 Postprocedural hemorrhage of a digestive system organ or structure following other procedure (principal); R10.33 Periumbilical pain; F17.200 Nicotine dependence, unspecified, uncomplicated; E11.65 Type 2 diabetes mellitus with hyperglycemia; E78.00 Pure hypercholesterolemia, unspecified; F12.10 Cannabis abuse, uncomplicated; Z98.890 Other specified postprocedural states; Z90.49 Acquired absence of other specified parts of digestive tract; Z79.899 Other long term (current) drug therapy; Z79.82 Long term (current) use of aspirin

== ENCOUNTER → 2018-05-02 | Outpatient (CLI) | payer MEDICARE, MEDICAID ==
[2018-05-02 13:52] LABS: BASO % 0.4 % (0.0-1.0); EOS # 0.2 10*3/uL (0.0-0.4); HEMATOCRIT 47.3 % (42.0-52.0); HEMOGLOBIN 16.1 g/dl (14.0-18.0); LYMPH # 2.4 10*3/uL (1.3-4.4); LYMPH % 22.1 % (27.0-41.0); MEAN CELL VOLUME 92.9 fl (80.0-94.0); MEAN CORPUSCULAR HGB 31.6 pg (27.0-31.0); MEAN PLATELET VOLUME 10.7 fl (9.6-12.3); NEUT # 7.3 10*3/uL (2.3-7.9); NEUT % 66.2 % (47.0-73.0); PLATELET COUNT AUTOMATED 244 10*3/uL (130-400); RED BLOOD COUNT 5.09 10*6/uL (4.50-5.90); RED CELL DISTRI WIDTH 13.6 % (0-14.5)
[2018-05-02 14:15] LABS: ALBUMIN 3.9 gm/dl (3.1-4.5); ALKALINE PHOSPHATASE 78 U/L (45-117); BUN 18 mg/dl (7-24); CHLORIDE 105 mmol/L (98-107); CREATININE 0.87 mg/dL (0.70-1.30); POTASSIUM 3.6 mmol/L (3.5-5.1); SGOT/AST 10 IU/L (3-35); SGPT/ALT 20 U/L (12-78); SODIUM 141 mmol/L (136-145); TOTAL PROTEIN 6.9 gm/dL (6.4-8.2)
== END | disposition home or self-care (01) ==
LOC: LAB 12:24
PROVIDERS: Internal Medicine
DX: R10.31 Right lower quadrant pain (principal)

== ENCOUNTER 2018-08-28 23:12 | Inpatient (IN) | payer MEDICARE, MEDICAID ==
[~2018-08-28] VITALS: Ht 172.7 cm; Wt 90.0 kg
--- NOTE | ~2018-08-28 | EKG ---
[place], [place] ELECTROCARDIOGRAM REPORT NAME: JUAN BELL UNIT #: [id number] ROOM: 425 DOCTOR: ALPA DRAFT REPORT BIRTHDATE: [birth year] [facility] Test Date: 2018-08-28 Test Time: 23:32:16 Pat Name: JUAN BELL Department: 4E Room: 425 Gender: M Tapeman: Marcus Dave : 1965 Requested By: JOE RAMOS Order Number: [id number] Reading MD: David Goff MD Measurements Intervals [place] Rate: 117 P: 64 AR: 160 QRS: -1 QRSD: 85 T: 112 QT: 346 QTc: 483 Interpretive Statements Sinus tachycardia LAE, consider biatrial enlargement Inferior infarct, old Abnormal lateral Q waves Anterior infarct, old Electronically Signed On 08-30-2018 6:31:50 PST by David Goff MD CM:EKGRPT:ELECTROCARDIOGRAM REPORT 2332 0631 JOE JUAREZ DRAFT REPORT JOE RAMOS DO
[2018-08-28 23:12] VITALS: BP 149/103
[~2018-08-28 23:12] MED LIST changes: +ASPIRIN CHEWABL81 MG PO; -ASPIRIN325 MG PO
[2018-08-28] MEDS ORDERED: SYMB160 INH (23:23)
[2018-08-28] MEDS ORDERED: BUSPIRONE HCL10 MG PO (23:25)
[2018-08-28 23:32] VITALS: BP 119/96
[2018-08-28 23:46] LABS: HEMATOCRIT 55.3 % (42.0-52.0); HEMOGLOBIN 19.2 g/dl (14.0-18.0); MEAN CELL VOLUME 91.9 fl (80.0-94.0); MEAN CORPUSCULAR HGB 31.9 pg (27.0-31.0); MEAN CORPUSCULAR HGB CONC 34.7 g/dl (33.0-37.0); MEAN PLATELET VOLUME 10.2 fl (9.6-12.3); PLATELET COUNT AUTOMATED 218 10*3/uL (130-400); RED BLOOD COUNT 6.02 10*6/uL (4.50-5.90); RED CELL DISTRI WIDTH 13.4 % (0-14.5); WHITE BLOOD COUNT 11.6 10*3/uL (4.8-10.8)
[2018-08-29] VITALS (8 sets, daily range): BP systolic 138–158; BP diastolic 82–97
[2018-08-29 00:05] LABS: ALBUMIN 3.5 gm/dl (3.1-4.5); ALKALINE PHOSPHATASE 107 U/L (45-117); BUN 14 mg/dl (7-24); CHLORIDE 98 mmol/L (98-107); CREATININE 1.23 mg/dL (0.70-1.30); POTASSIUM 3.3 mmol/L (3.5-5.1); SGOT/AST 25 IU/L (3-35); SGPT/ALT 40 U/L (12-78); SODIUM 134 mmol/L (136-145); TOTAL PROTEIN 7.3 gm/dL (6.4-8.2)
[2018-08-29 00:07] LABS: TROPONIN I < 0.015 ng/ml (<0.045)
[2018-08-29 00:14] LABS: ATYPICAL LYMPHS 3 % (0-0); PLATELET SUFFICIENCY NORMAL (NORMAL); TOTAL CELLS COUNTED 100 #CELLS
[2018-08-29 06:39] LABS: HEMATOCRIT 50.8 % (42.0-52.0); HEMOGLOBIN 17.6 g/dl (14.0-18.0); MEAN CORPUSCULAR HGB 31.9 pg (27.0-31.0); MEAN CORPUSCULAR HGB CONC 34.6 g/dl (33.0-37.0); MEAN PLATELET VOLUME 10.5 fl (9.6-12.3); PLATELET COUNT AUTOMATED 213 10*3/uL (130-400); RED BLOOD COUNT 5.52 10*6/uL (4.50-5.90); RED CELL DISTRI WIDTH 13.4 % (0-14.5); WHITE BLOOD COUNT 8.7 10*3/uL (4.8-10.8)
[2018-08-29 06:47] LABS: ALBUMIN 3.1 gm/dl (3.1-4.5); BUN 13 mg/dl (7-24); CHLORIDE 106 mmol/L (98-107); CHOLESTEROL 126 mg/dL (<200); CREATININE 0.95 mg/dL (0.70-1.30); POTASSIUM 3.8 mmol/L (3.5-5.1); SGOT/AST 19 IU/L (3-35); SGPT/ALT 35 U/L (12-78); SODIUM 137 mmol/L (136-145); TOTAL PROTEIN 6.7 gm/dL (6.4-8.2); TRIGLYCERIDES 66 mg/dl (<150); TROPONIN I 0.022 ng/ml (<0.045); VLDL CHOLESTEROL 13 mg/dL (6-40)
[2018-08-29 06:48] LABS: ALKALINE PHOSPHATASE 95 U/L (45-117); HDL CHOLESTEROL 43 mg/dl (40-60); LDL CHOLESTEROL 70 mg/dL (9-159)
[2018-08-29 06:52] LABS: FREE T4 1.29 ng/dl (0.76-1.46); THYROID STIM HORMONE (HS) 0.247 uIU/ml (0.358-4.75)
[2018-08-29 07:06] LABS: ACT PARTIAL THROMBO TIME 27.1 SECONDS (20.8-31.5); INTERNATIONAL NORM RATIO 1.1 (2.0-3.5)
[2018-08-29 07:29] LABS: PLATELET SUFFICIENCY NORMAL (NORMAL); TOTAL CELLS COUNTED 100 #CELLS
[2018-08-29 07:37] LABS: VITAMIN D, 25-HYDROXY 34.1 ng/mL (30-100)
[2018-08-29] MEDS ORDERED: LISINOPRIL40 MG PO (09:22)
[2018-08-29] MEDS ORDERED: CYCLOBENZAPRINE10 MG PO (09:22)
[2018-08-30] VITALS: BP 154/90
[2018-08-30 06:24] LABS: BASO % 0.1 % (0.0-1.0); HEMATOCRIT 48.8 % (42.0-52.0); HEMOGLOBIN 16.3 g/dl (14.0-18.0); LYMPH # 1.1 10*3/uL (1.3-4.4); LYMPH % 7.7 % (27.0-41.0); MEAN CORPUSCULAR HGB 31.4 pg (27.0-31.0); MEAN CORPUSCULAR HGB CONC 33.4 g/dl (33.0-37.0); MEAN PLATELET VOLUME 10.6 fl (9.6-12.3); MONO # 0.7 10*3/uL (0.1-1.0); MONO % 4.5 % (3.0-9.0); NEUT # 12.8 10*3/uL (2.3-7.9); NEUT % 87.4 % (47.0-73.0); PLATELET COUNT AUTOMATED 215 10*3/uL (130-400); RED BLOOD COUNT 5.19 10*6/uL (4.50-5.90); RED CELL DISTRI WIDTH 13.8 % (0-14.5); WHITE BLOOD COUNT 14.7 10*3/uL (4.8-10.8)
[2018-08-30 06:55] LABS: BUN 17 mg/dl (7-24); CHLORIDE 102 mmol/L (98-107); CREATININE 0.84 mg/dL (0.70-1.30); POTASSIUM 4.2 mmol/L (3.5-5.1); SODIUM 138 mmol/L (136-145)
[2018-08-30 08:00] VITALS: BP 157/102
[2018-08-30 12:00] VITALS: BP 147/98
[2018-08-30 16:00] VITALS: BP 133/95
[2018-08-30 20:00] VITALS: BP 159/91
[2018-08-31] VITALS: BP 144/75
[2018-08-31 06:35] LABS: HEMOGLOBIN 16.6 g/dl (14.0-18.0); MEAN CORPUSCULAR HGB 31.5 pg (27.0-31.0); MEAN CORPUSCULAR HGB CONC 33.9 g/dl (33.0-37.0); MEAN PLATELET VOLUME 10.3 fl (9.6-12.3); PLATELET COUNT AUTOMATED 216 10*3/uL (130-400); RED BLOOD COUNT 5.27 10*6/uL (4.50-5.90); RED CELL DISTRI WIDTH 13.7 % (0-14.5); WHITE BLOOD COUNT 18.6 10*3/uL (4.8-10.8)
[2018-08-31 06:47] LABS: BUN 19 mg/dl (7-24); CHLORIDE 100 mmol/L (98-107); CREATININE 0.84 mg/dL (0.70-1.30); POTASSIUM 3.7 mmol/L (3.5-5.1); SODIUM 138 mmol/L (136-145)
[2018-08-31 06:58] LABS: PLATELET SUFFICIENCY NORMAL (NORMAL); TOTAL CELLS COUNTED 100 #CELLS
[2018-08-31 08:00] VITALS: BP 171/107
[2018-08-31 12:00] VITALS: BP 152/95
[2018-08-31] MEDS ORDERED: PREDNISONE10 MG PO (12:53)
[2018-08-31] MEDS ORDERED: ZITHROMAX250 MG PO (12:53)
== END 2018-08-31 13:57 | disposition home or self-care (01) | DRG 871 ==
LOC: ED 23:12 → 4E 08-29 01:48 → EDHOLD 08-29 01:48 → 4E 08-29 02:09
PROVIDERS: Internal Medicine; Podiatrist Primary Podiatric Medicine; Student in an Organized Health Care Education/Training Program
DX: A41.9 Sepsis, unspecified organism (principal); J18.9 Pneumonia, unspecified organism; J44.1 Chronic obstructive pulmonary disease with (acute) exacerbation; E87.2 Acidosis; E87.1 Hypo-osmolality and hyponatremia; J44.0 Chronic obstructive pulmonary disease with (acute) lower respiratory infection; R65.20 Severe sepsis without septic shock; L23.7 Allergic contact dermatitis due to plants, except food; E87.6 Hypokalemia; D75.1 Secondary polycythemia; I10 Essential (primary) hypertension; I25.10 Atherosclerotic heart disease of native coronary artery without angina pectoris; I48.0 Paroxysmal atrial fibrillation; E03.9 Hypothyroidism, unspecified; K21.9 Gastro-esophageal reflux disease without esophagitis; E11.8 Type 2 diabetes mellitus with unspecified complications; F39 Unspecified mood [affective] disorder; R09.02 Hypoxemia; F32.9 Major depressive disorder, single episode, unspecified; E78.00 Pure hypercholesterolemia, unspecified; E66.9 Obesity, unspecified; F17.210 Nicotine dependence, cigarettes, uncomplicated; Z71.6 Tobacco abuse counseling; Z87.01 Personal history of pneumonia (recurrent); Z95.5 Presence of coronary angioplasty implant and graft; I25.2 Old myocardial infarction; Z87.81 Personal history of (healed) traumatic fracture; Z90.49 Acquired absence of other specified parts of digestive tract; Z82.49 Family history of ischemic heart disease and other diseases of the circulatory system; Z83.3 Family history of diabetes mellitus; Z80.9 Family history of malignant neoplasm, unspecified; Z79.82 Long term (current) use of aspirin; Z79.899 Other long term (current) drug therapy; Z68.30 Body mass index [BMI] 30.0-30.9, adult

== ENCOUNTER 2019-12-07 16:37 | Emergency (ER) | payer MEDICARE, MEDICAID ==
[~2019-12-07] VITALS: Ht 172.7 cm; Wt 86.2 kg
[~2019-12-07 16:37] MED LIST changes: +BUSPIRONE HCL10 MG PO; +CYCLOBENZAPRINE10 MG PO; +LISINOPRIL40 MG PO; +SYMB160 INH; +ZITHROMAX250 MG PO
[2019-12-07 18:08] LABS: HEMATOCRIT 51.2 % (42.0-52.0); MEAN CELL VOLUME 90.9 fl (80.0-94.0); MEAN CORPUSCULAR HGB CONC 35.2 g/dl (33.0-37.0); MEAN PLATELET VOLUME 10.9 fl (9.6-12.3); PLATELET COUNT AUTOMATED 280 10*3/uL (130-400); RED BLOOD COUNT 5.63 10*6/uL (4.50-5.90); RED CELL DISTRI WIDTH 13.3 % (0-14.5); WHITE BLOOD COUNT 20.4 10*3/uL (4.8-10.8)
[2019-12-07 18:22] LABS: ACT PARTIAL THROMBO TIME 30.5 SECONDS (20.0-32.1)
[2019-12-07 18:24] LABS: ALBUMIN 3.7 gm/dl (3.1-4.5); ALKALINE PHOSPHATASE 98 U/L (45-117); BUN 14 mg/dl (7-24); CHLORIDE 102 mmol/L (98-107); CREATININE 1.03 mg/dL (0.70-1.30); POTASSIUM 3.4 mmol/L (3.5-5.1); SGOT/AST 22 IU/L (3-35); SGPT/ALT 21 U/L (12-78); SODIUM 136 mmol/L (136-145); TOTAL PROTEIN 8.3 gm/dL (6.4-8.2); URIC ACID 6.7 mg/dL (3.5-7.2)
[2019-12-07 18:25] LABS: TROPONIN I < 0.015 ng/ml (<0.045)
[2019-12-07 18:33] VITALS: BP 180/100
[2019-12-07 18:38] LABS: BASOPHILS 1 % (0-1); TOTAL CELLS COUNTED 100 #CELLS
[2019-12-07 18:39] LABS: PLATELET SUFFICIENCY NORMAL (NORMAL)
== END 2019-12-07 19:58 | disposition short-term general hospital (02) ==
LOC: ED 16:37
PROVIDERS: Physician Assistant
DX: M00.9 Pyogenic arthritis, unspecified (principal); I25.2 Old myocardial infarction; E78.00 Pure hypercholesterolemia, unspecified; J44.9 Chronic obstructive pulmonary disease, unspecified; K21.9 Gastro-esophageal reflux disease without esophagitis; I10 Essential (primary) hypertension; I25.10 Atherosclerotic heart disease of native coronary artery without angina pectoris; M06.9 Rheumatoid arthritis, unspecified; F17.200 Nicotine dependence, unspecified, uncomplicated; Z79.82 Long term (current) use of aspirin; Z79.899 Other long term (current) drug therapy; Z90.49 Acquired absence of other specified parts of digestive tract

== ENCOUNTER → 2022-04-18 | Outpatient (CLI) | payer OTHER | END | disposition home or self-care (01) | LOC: CARD 08:30 | PROVIDERS: ATTEND Internal Medicine | DX: I07.1 Rheumatic tricuspid insufficiency (principal) ==

== ENCOUNTER → 2022-08-24 | Outpatient (CLI) | payer OTHER, MEDICAID ==
[2022-08-24 08:24] LABS: BILIRUBIN Negative (Negative); BLOOD Negative (Negative); CLARITY Clear (Clear); COLOR Dark Yellow (Yellow); GLUCOSE 2+ (Negative); KETONE Trace (Negative); LEUKO ESTERASE Negative (Negative); NITRITE Negative (Negative)
[2022-08-24 08:32] LABS: BASO # 0.1 10*3/uL (0.0-0.1); BASO % 0.5 % (0.0-1.0); EOS # 0.1 10*3/uL (0.0-0.4); EOS % 1.3 % (1.0-4.0); LYMPH # 1.4 10*3/uL (1.3-4.4); LYMPH % 13.6 % (27.0-41.0); MEAN CELL VOLUME 95.2 fl (80.0-94.0); MEAN CORPUSCULAR HGB 32.1 pg (27.0-31.0); MEAN CORPUSCULAR HGB CONC 33.7 g/dl (33.0-37.0); MEAN PLATELET VOLUME 10.5 fl (9.6-12.3); MONO # 1.1 10*3/uL (0.1-1.0); NEUT # 7.3 10*3/uL (2.3-7.9); NEUT % 73.3 % (47.0-73.0); PLATELET COUNT AUTOMATED 261 10*3/uL (130-400); RED BLOOD COUNT 5.46 10*6/uL (4.50-5.90); RED CELL DISTRI WIDTH 14.1 % (0-14.5); WHITE BLOOD COUNT 9.9 10*3/uL (4.8-10.8)
[2022-08-24 08:44] LABS: ALKALINE PHOSPHATASE 140 U/L (45-117); BUN 16 mg/dl (7-24); CHLORIDE 104 mmol/L (98-107); CHOLESTEROL 230 mg/dL (<200); CREATININE 0.86 mg/dL (0.70-1.30); LDL CHOLESTEROL 147 mg/dL (9-159); POTASSIUM 3.8 mmol/L (3.5-5.1); SGOT/AST 12 IU/L (3-35); SGPT/ALT 23 U/L (12-78); SODIUM 140 mmol/L (136-145); TOTAL PROTEIN 6.6 gm/dL (6.4-8.2); TRIGLYCERIDES 135 mg/dl (<150)
[2022-08-24 08:49] LABS: FREE T4 1.16 ng/dl (0.76-1.46)
[2022-08-24 09:05] LABS: MUCOUS 1+
== END | disposition home or self-care (01) ==
LOC: LAB 07:44
PROVIDERS: ATTEND Internal Medicine
DX: E11.65 Type 2 diabetes mellitus with hyperglycemia (principal); I10 Essential (primary) hypertension; E55.9 Vitamin D deficiency, unspecified; Z12.5 Encounter for screening for malignant neoplasm of prostate; Z13.89 Encounter for screening for other disorder; Z13.0 Encounter for screening for diseases of the blood and blood-forming organs and certain disorders involving the immune mechanism; Z13.1 Encounter for screening for diabetes mellitus; R82.998 Other abnormal findings in urine; Z13.21 Encounter for screening for nutritional disorder; Z13.228 Encounter for screening for other metabolic disorders; Z13.29 Encounter for screening for other suspected endocrine disorder; Z13.6 Encounter for screening for cardiovascular disorders; Z13.9 Encounter for screening, unspecified